=== PATIENT | male | born 1985 | race Hispanic/Latino ===

== ENCOUNTER 2022-04-27 10:24 | Emergency (ER) | payer OTHER ==
[~2022-04-27] VITALS: Ht 165.1 cm; Wt 81.6 kg
[2022-04-27 10:25] VITALS: BP 129/83
[2022-04-27] MEDS ORDERED: IBUP-2070 PO (11:47)
[2022-04-27 12:04] LABS: APPEARANCE,URINE CLEAR (CLEAR); BILIRUBIN,URINE NEGATIVE (NEGATIVE); COLOR,URINE YELLOW (YELLOW); GLUCOSE, URINE (UA) NEGATIVE (NEGATIVE); KETONES,URINE NEGATIVE (NEGATIVE); LEUKOCYTE ESTERASE ,URINE NEGATIVE Leu/uL (NEGATIVE); NITRATE,URINE NEGATIVE (NEGATIVE); OCCULT BLOOD,URINE NEGATIVE (NEGATIVE); PH,URINE 5.5 (5.0-8.0); PROTEIN,URINE NEGATIVE (NEGATIVE); UROBILINOGEN,URINE 0.2 mg/dL (0.2-1.0)
== END 2022-04-27 15:39 | disposition home or self-care (01) ==
LOC: EDH 10:24
DX: N43.2 Other hydrocele (principal); N50.812 Left testicular pain; N50.811 Right testicular pain
CPT/HCPCS: 76870; 81003